=== PATIENT | female | born 1980 | race Caucasian/White ===

== ENCOUNTER 2018-06-05 21:58 | Emergency (ER) | payer OTHER ==
[2018-06-05 22:23] VITALS: BP 143/85; PULSE 86; O2SAT 100
[2018-06-05] MEDS ORDERED: TETRACAINE 0.5% STERI-UNIT SOL OP ONE (22:29)
[2018-06-05] MEDS ORDERED: TETRACAINE 0.5% STERI-UNIT SOL OP STA (22:32)
--- NOTE | 2018-06-05 22:32 | ERPHSYRPT ---
- History of Present Illness Time Seen by Provider: 06/05/18 22:29 Source: patient Exam Limitations: no limitations Patient Subjective Stated Complaint: pt was mowing the yard this pm and once she got home she started having pain in her right eye when blinking; flushed with water without relief at home. Triage Nursing Assessment: pt a&o x3; skin p, w, & d; ambulated to room per self ; small foreign body/abrasion noted to right eye on visual assessment. Physician History: The patient is a 37-year-old female complains of being a foreign body in her right eye while mowing the yard this evening. She tried flushing her right eye with water but was not able to remove it. She sees the object right in the middle of her right eye. Timing/Duration: today Location: right eye Severity: mild Apparent Injury: possibly Associated Symptoms: foreign body sensation Visual Assistive Devices: None Allergies/Adverse Reactions: No Known Drug Allergies Allergy (Verified 06/05/18 22:24) Home Medications: No Reportable Medications [No Reported Medications] 06/05/18 [History] Hx Tetanus, Diphtheria Vaccination/Date Given: No Hx Influenza Vaccination/Date Given: Yes Hx Pneumococcal Vaccination/Date Given: No Immunizations Up to Date: No - Review of Systems Constitutional: No Fever, No Chills Eyes: Foreign Body Sensation Ears, Nose, & Throat: No Symptoms Respiratory: No Cough, No Dyspnea Cardiac: No Chest Pain, No Edema, No Syncope Abdominal/Gastrointestinal: No Abdominal Pain, No Nausea, No Vomiting, No Diarrhea Genitourinary Symptoms: No Dysuria Musculoskeletal: No Back Pain, No Neck Pain Skin: No Rash Neurological: No Dizziness, No Focal Weakness, No Sensory Changes Psychological: No Symptoms Endocrine: No Symptoms Hematologic/Lymphatic: No Symptoms Immunological/Allergic: No Symptoms All Other Systems: Reviewed and Negative - Past Medical History Pertinent Past Medical History: No - Past Surgical History Past Surgical History: Yes Female Surgical History: Tubal Ligation - Social History Smoking Status: Never smoker Exposure to second hand smoke: No Drug Use: none Patient Lives Alone: No - Female History Hx Last Menstrual Period: 04/2018 Hx Now: No - Nursing Vital Signs Nursing Vital Signs: Initial Vital Signs Temperature 99.1 F 06/05/18 22:07 Pulse Rate 86 06/05/18 22:07 Respiratory Rate 16 06/05/18 22:07 Blood Pressure 143/85 06/05/18 22:07 O2 Sat by Pulse Oximetry 100 06/05/18 22:07 Pain Scale Pain Intensity 1 - Physical Exam General Appearance: no apparent distress Vision Acuity Degree Evaluation Phase: Uncorrected Vision Acuity Right Eye: 20/20 Vision Acuity Left Eye: 20/20 Eye Exam: right eye: foreign body (tiny FB in middle of cornea), left eye: normal inspection Ears, Nose, Throat Exam: normal ENT inspection Neck Exam: normal inspection Respiratory Exam: normal breath sounds Cardiovascular Exam: regular rate/rhythm Gastrointestinal Exam: soft Extremity Exam: normal inspection Neurologic: alert Skin Exam: normal color SpO2 Interpretation: normal SpO2: 100 Oxygen Delivery: Room Air Procedures - Eye Procedure Tetracaine Drops Administered: Yes Eye FB Removal: removal w/ cotton swab Remaining Material after FB Removal: none Antibiotic Oinment/Drps Admin: right eye Ordered Tests: Medication Summary Discontinued Medications Generic Name Dose Route Start Last Admin Trade Name Rahq PRN Reason Stop Dose Admin Tetracaine HCl Confirm 06/05/18 22:29 Tetracaine 0.5% Steri-Unit Kassandra Administered 06/05/18 22:30 Dose 4 ml OP .STK-MED ONE Tetracaine HCl 4 ml 06/05/18 22:32 06/05/18 22:36 Tetracaine 0.5% Steri-Unit Kassandra OP 06/05/18 22:33 4 ml STAT STA Administration - Progress Progress: improved Counseled pt/family regarding: diagnosis - Departure Time of Disposition: 22:43 Departure Disposition: Home Clinical Impression: Foreign body of right eye Condition: Stable Critical Care Time: No Additional Instructions: You had a foreign body in the middle of your right eye that was easily removed with a cotton tip. I did not see any abrasions to the eye. You were given 2 drops of gentamicin solution to your right eye in the ER. Continue applying 2 drops of gentamicin every 2 hours tomorrow. Follow-up with an crusher foreman if the condition worsens.
[2018-06-05] MEDS ORDERED: GARAMYCIN 0.3% OPHTH SOL OP ONE (22:43)
[2018-06-05] MEDS ORDERED: GARAMYCIN 0.3% OPHTH SOL ONE (22:45)
== END 2018-06-05 22:54 | disposition home or self-care (01) ==
LOC: ED 21:58
DX: T15.01XA Foreign body in cornea, right eye, initial encounter (principal); X58.XXXA Exposure to other specified factors, initial encounter; Y93.H2 Activity, gardening and landscaping; Y92.007 Garden or yard of unspecified non-institutional (private) residence as the place of occurrence of the external cause
CPT/HCPCS: 99283; A9270-GY